=== PATIENT | female | born 1990 | race African-American/Black ===

== ENCOUNTER 2022-04-24 00:38 | Emergency (ER) | payer BC ==
--- OUTSIDE RECORDS SUMMARY | 2022-04-24 00:43 | XMS REPORT | Continuity of Care Document ---
:1990 Author Organization [facility] t Address [address] [place] [address] Dr. [address] [place] [address] Care Team Providers Name Role Phone DELIA ARREDONDO Primary Care Physician Unavailable Carlos Peace RN Attending Clinician Unavailable Only, Ang Db Test Attending Clinician Unavailable Reynaldo Chang Attending Clinician REYNALDO STALLWORTH Attending Clinician Unavailable DELIA ARREDONDO Attending Clinician Unavailable CHERRIE Attending Clinician Unavailable Javier PALMER Attending Clinician Unavailable Javier Martin Attending Clinician Chloe Navas MD Attending Clinician Doctor Unassigned, [place] Attending Clinician Unavailable DR FOREIGN SOLIS Attending Clinician Unavailable Carmen Attending Clinician Unavailable CHERRIE Admitting Clinician Unavailable DR FOREIGN SOLIS Admitting Clinician Unavailable Carmen Admitting Clinician Unavailable Payers Payer Name Policy Type Policy Number Effective Date Expiration Date S robert [place] WOMEN'S [id number] HEALTH PROGRAM (MEDICAID) Problems Condition Condition Condition Status Onset Resolution Last Treating Co mments Source Name Details Category Date Date Treatment Clinician Date Labial Labial Disease Active Univers abscess abscess 8- ity of 00:00: [place] 00 Medical Branch Morbid Morbid Disease Active Univers obesity obesity 8-26 ity of with body with body 00:[place] mass index mass index 00 Me dical of 50 or of 50 or Branch higher higher Obese Obese Disease Active 2020- Univers 9-29 ity of 00:00: [place] [facility] Trichomona Trichomona Disease Active 2020- U nivers l l 6-30 ity of vulvovagin vulvovagin [place] it[place] it[place] 00 Medical Branch Other Other Disease Active 2019- Univers general general 6-29 ity of counseling counseling [place] and advice and advice 00 Ri dical for for Branch contracept contracept wesley wesley management management Dysmenorrh Dysmenorrh Disease Active 2019- U nivers ea ea 9-10 ity of 00:00: [place] [facility] Menorrhagi Menorrhagi Disease Active U nivers a with a with 9-10 ity of regular regular 00:00: [place] cycle cycle 00 Medical Branch Elevated Elevated Disease Active Unive rs BP without BP without 9-10 it y of diagnosis diagnosis 00:00: [place] s of of Medical hypertensi hypertensi Br anch on on Irregular Irregular Disease Active Uni vers menstrual menstrual 9-10 ity of cycle cycle 00:00: [place] [facility] Branch Allergies, Adverse Reactions, Alerts Allergy Allergy Status Severity Reaction(s) Onset Inactive Treating Comm ents Source Name Type Date Date Clinician NO KNOWN Drug Active Univers ALLERGIE Class ity of S [facility] No Known DA Active [facility] s Social History Social Habit Start Date Stop Date Quantity Comments Source History of Current smoker University of tobacco use [facility] Exposure to 2022-02-08 2022-02-18 Not sure University SARS-CoV-2 00:00:00 15:15:00 [facility] (event) [place] Alcohol intake 2021-11-18 2021-11-18 Current drinker Unive rsity of 00:00:00 00:00:00 of alcohol [facility] (finding) [place] Tobacco use and 2021-03-28 2021-03-28 Smokeless tobacco Un iversity of exposure 00:00:00 00:00:00 non-user [place] [facility] History SDOH 2020-05-01 2020-05-01 99 University o f Alcohol Frequency 00:00:00 00:00:00 [facility] edical Branch History SDOH 2020-05-01 2020-05-01 99 University o f Alcohol Std 00:00:00 00:00:00 [place] Medical Drinks Branch History SDOH 2020-05-01 2020-05-01 99 [place] o f Alcohol Binge 00:00:00 00:00:00 [place] Medic al Branch Alcohol Comment 2020-05-01 2020-05-01 social Universit y of 00:00:00 00:00:00 [facility] Sex Ass[birth year] At [birth year] Universit y of 00:00:00 00:00:00 [facility] Smoking Status Start Date Stop Date Source Ex-smoker 2021-03-28 00:00:00 2021-03-28 00:00:00 [facility] ty [facility] Medications Ordered Filled Start Stop Current Ordering Indication Dosage Frequency Signature Comments Components Source Medication Medication Date Date Medication? Clinician (SIG) Name Name NaCl 0.9% 2021- No 1000mL at 999 Uni vers (NS) IV 11-19 mL/hr, ity of infusion 08:45: 09:15 [place]venou [place] 1,000 mL 00 :00 s, ONCE, 1 Medic al dose, On Branch [facility] 11/19/21 at 0345, KAREEM metFORMIN 2021- No 500mg 500 mg, Uni vers (GLUCOPHAGE 11-19 Oral, ity of ) tablet 08:45: 09:11 ONCE, 1 [place] 500 mg 00 :00 dose, On Medical e Branch 11/19/21 at 0345, Routine NaCl 0.9% 2021- No 1000mL at 999 Uni vers (NS) bolus 11-19 mL/hr, ity of infusion 06:30: 06:16 1,000 mL, [place] as 1,000 mL 00 :00 IV Medical Infusion, Branch ONCE, 1 dose, On [facility] 11/19/21 at 0130, STAT insulin 2021- No 10U 10 Units, Univ ers regular 11-19 Slow IV ity of human 06:30: 05:31 Push [place] (HUMULIN R) 00 :00 ONCE, 1 Medic al injection dose, On Branch 10 Units [facility] 11/19/21 at 0130, STAT ketorolac 2021- No 15mg 15 mg, Unive rs (TORADOL) 11-19 Slow IV ity of injection 06:00: 05:18 Push, [place] 15 mg 00 :00 ONCE, 1 Medical dose, On Branch 11/19/21 at 0100, KAREEM
Fa [facility] healthy member approving Restricted medication : Javier PALMER NaCl 0.9% 2021- No 1000mL at 999 Uni vers (NS) IV 11-19-19 mL/hr, ity of infusion 01:45: 06:15 [place]ou [place] 1,000 mL 00 :00 s, ONCE, 1 Medic al dose, On Branch 11/18/21 at 2100, KAREEM metFORMIN 2021-0 Yes [id number] 500mg Take 1 Univers 500 mg 4-19 tablet by ity of tablet 00:00: mouth 2 [place] 00 (two) Medical times Branch daily. glipiZIDE Yes [id number] 10mg Take 1 U nivers 10 mg 4-19 tablet by ity of tablet 00:00: mouth [place] 00 daily. Medical Branch metFORMIN 0 Yes [id number] 500mg Take 1 Univers 500 mg 4-19 tablet by ity of tablet 00:00: mouth 2 [place] 00 (two) Medical times Branch daily. glipiZIDE 2021-0 Yes [id number] 10mg Take 1 U nivers 10 mg 4-19 tablet by ity of tablet 00:00: mouth [place] 00 daily. Medical Branch metFORMIN 0 Yes [id number] 500mg Take 1 Univers 500 mg 4-19 tablet by ity of tablet 00:00: mouth 2 [place] (two) Medical times Branch daily. glipiZIDE 2021-0 Yes [id number] 10mg Take 1 U nivers 10 mg 4-19 tablet by ity of tablet 00:00: mouth [place] 00 daily. Medical Branch albuterol 0 Yes [id number] 2{puff} Inhale 2 Univers 90 4-18 Puffs ity of mcg/actuati 00:00: every 6 [place] as on inhaler 00 (six) Medical hours as Branch needed for Wheezing or Shortness of Breath. benzonatate 0 Yes [id number] 200mg Take 2 Univers 100 mg 4-18 capsules ity of capsule 00:00: by mouth [place] 00 every 8 Medical (eight) Branch hours as needed for Cough. albuterol 0 Yes [id number] 2{puff} Inhale 2 Univers 90 4-18 Puffs ity of mcg/actuati 00:00: every 6 [place] as on inhaler 00 (six) Medical hours as Branch needed for Wheezing or Shortness of Breath. benzonatate 0 Yes [id number] 200mg Take 2 Univers 100 mg 4-18 capsules ity of capsule 00:00: by mouth [place] every 8 Medical (eight) Branch hours as needed for Cough. albuterol 0 Yes [id number] 2{puff} Inhale 2 Univers 90 4-18 Puffs ity of mcg/actuati 00:00: every 6 [place] as on inhaler 00 (six) Medical hours as Branch needed for Wheezing or Shortness of Breath. benzonatate 0 Yes [id number] 200mg Take 2 Univers 100 mg 4-18 capsules ity of capsule 00:00: by mouth [place] every 8 Medical (eight) Branch hours as needed for Cough. albuterol 0 Yes [id number] 2{puff} Inhale 2 Univers 90 4-18 Puffs ity of mcg/actuati 00:00: every 6 [place] as on inhaler 00 (six) Medical hours as Branch needed for Wheezing or Shortness of Breath. benzonatate 0 Yes [id number] 200mg Take 2 Univers 100 mg 4-18 capsules ity of capsule 00:00: by mouth [place] 00 every 8 Medical (eight) Branch hours as needed for Cough. albuterol 0 Yes [id number] 2{puff} Inhale 2 Univers 90 4-18 Puffs ity of mcg/actuati 00:00: every 6 [place] as on inhaler 00 (six) Medical hours as Branch needed for Wheezing or Shortness of Breath. benzonatate 2021-0 Yes [id number] 200mg Take 2 Univers 100 mg 4-18 capsules ity of capsule 00:00: by mouth [place] 00 every 8 Medical (eight) Branch hours as needed for Cough. amoxicillin 0 2021- No [id number] 1{tbl} Take 1 Univers -clavulanat 4-18 04-26 tablet by it y of e 00:00: 04:59 mouth 2 [place] (AUGMENTIN) 00 :00 (two) Medical 875-125 mg times Branch per tablet daily for 7 days. amoxicillin 2021-0 2021- No [id number] 1{tbl} Take 1 Univers -clavulanat 4-18 04-26 tablet by it y of e 00:00: 04:59 mouth 2 [place] (AUGMENTIN) 00 :00 (two) Medical 875-125 mg times Branch per tablet daily for 7 days. amoxicillin 2021-0 2021- No [id number] 1{tbl} Take 1 Univers -clavulanat 4-18 04-26 tablet by it y of e 00:00: 04:59 mouth 2 [place] (AUGMENTIN) 00 :00 (two) Medical 875-125 mg times Branch per tablet daily for 7 days. Iodoform Yes [id number] Pack wound Univers (CURITY 8-27 daily and ity of IODOFORM 00:00: [place] PACK[place] 00 with PCP Medical STRIP) 1 X in 1 week Bran 5 "-yard [facility] metFORMIN Yes [id number] 500mg Take 1 U nivers 500 mg 8-27 tablet by ity of tablet 00:00: mouth 2 (two) Medical times Branch daily with meals. glipiZIDE Yes [id number] 10mg Take 1 Un ericka 10 mg 8-27 tablet by ity of tablet 00:00: mouth [place] 00 daily. Medical Branch Iodoform 0 Yes [id number] Pack wound Univers (CURITY 8-27 daily and ity of IODOFORM 00:00: [place] P[place] 00 with PCP Medical STRIP) 1 X in 1 week Bran 5 "-yard [facility] metFORMIN 0 Yes [id number] 500mg Take 1 U nivers 500 mg 8-27 tablet by ity of tablet 00:00: mouth 2 (two) Medical times Branch daily with meals. glipiZIDE 0 Yes [id number] 10mg Take 1 Un ericka 10 mg 8-27 tablet by ity of tablet 00:00: mouth [place] 00 daily. Medical Branch Iodoform 0 Yes [id number] Pack wound Univers (CURITY 8-27 daily and ity of IODOFORM 00:00: [place] P[place] 00 with PCP Medical STRIP) 1 X in 1 week [facility] 5 "-yard [facility] metFORMIN 0 Yes [id number] 500mg Take 1 U nivers 500 mg 8-27 tablet by ity of tablet 00:00: mouth 2 (two) Medical times Branch daily with meals. glipiZIDE 0 Yes [id number] 10mg Take 1 Un er[place] 10 mg 8-27 tablet by ity of tablet 00:00: mouth [place] 00 daily. Medical Branch Iodoform 0 Yes [id number] Pack wound Univers (CURITY 8-27 daily and ity of IODOFORM 00:00: [place] PACK[place] 00 with PCP Medical STRIP) 1 X in 1 week Bran ch 5 "-yard [facility] metFORMIN Yes [id number] 500mg Take 1 U nivers 500 mg 8-27 tablet by ity of tablet 00:00: mouth 2 [place] (two) Medical times Branch daily with meals. glipiZIDE 0 Yes [id number] 10mg Take 1 Un [place] 10 mg 8-27 tablet by ity of tablet 00:00: mouth [place] 00 daily. Medical Branch Iodoform 0 Yes [id number] Pack wound Univers (CURITY 8-27 daily and ity of IODOFORM 00:00: [place] PACK[place] 00 with PCP Medical STRIP) 1 X in 1 week Bran ch 5 "-yard [facility] metFORMIN 0 Yes [id number] 500mg Take 1 U nivers 500 mg 8-27 tablet by ity of tablet 00:00: mouth 2 00 (two) Medical times Branch daily with meals. glipiZIDE 0 Yes [id number] 10mg Take 1 Un er[place] 10 mg 8-27 tablet by ity of tablet 00:00: mouth [place] 00 daily. Medical Branch norethindro 2019-0 Yes [id number] 1{tbl} Take 1 Univers ne 0.35 mg 9-29 tablet by ity of tablet 00:00: mouth [place] 00 daily. Medical Branch norethindro 2019-0 Yes [id number] 1{tbl} Take 1 Univers ne 0.35 mg 9-29 tablet by ity of tablet 00:00: mouth [place] 00 daily. Medical Branch norethindro 2019-0 Yes [id number] 1{tbl} Take 1 Univers ne 0.35 mg 9-29 tablet by ity of tablet 00:00: mouth [place] 00 daily. Medical Branch norethindro Yes [id number] 1{tbl} Take 1 Univers ne 0.35 mg 9-29 tablet by ity of tablet 00:00: mouth [place] 00 daily. Medical Branch norethindro Yes [id number] 1{tbl} Take 1 Univers ne 0.35 mg 9-29 tablet by ity of tablet 00:00: mouth [place] 00 daily. Medical Branch ferrous Yes [id number] 325mg Take 1 Un [place] sulfate 325 9-18 tablet by ity of mg (65 mg 00:00: mouth [place] iron) 00 daily. Medical tablet Branch ferrous Yes [id number] 325mg Take 1 Un [place] sulfate 325 9-18 tablet by ity of mg (65 mg 00:00: mouth [place] iron) 00 daily. Medical tablet Branch ferrous Yes [id number] 325mg Take 1 Un [place] sulfate 325 9-18 tablet by ity of mg (65 mg 00:00: mouth [place] iron) 00 daily. Medical tablet Branch ferrous Yes [id number] 325mg Take 1 Un [place] sulfate 325 9-18 tablet by ity of mg (65 mg 00:00: mouth [place] iron) 00 daily. Medical tablet Branch ferrous Yes [id number] 325mg Take 1 Un [place] sulfate 325 9-18 tablet by ity of mg (65 mg 00:00: mouth [place] iron) 00 daily. [facility] Branch Immunizations Ordered Filled Immunization Date Status Comments [facility] e Immunization Name Name Influenza Virus 2020-05-01 Completed Universit y of Vaccine [place] .5 mL 00:00:00 [place] Medical IM 6+ MO Branch Influenza Virus 2020-05-01 Completed Universit y of Vaccine [place] .5 mL 00:00:00 [place] Medical IM 6+ MO Branch Influenza Virus 2020-05-01 Completed Universit y of Vaccine [place] .5 mL 00:00:00 [place] Medical IM 6+ MO Branch Influenza Virus 2020-05-01 Completed Universit y of Vaccine [place] .5 mL 00:00:00 [facility] IM 6+ MO Branch Influenza Virus 2020-05-01 Completed Universit y of Vaccine [place] .5 mL 00:00:00 [facility] 6+ MO Branch Vital Signs Vital Name Observation Time Observation Value Comments Source Systolic blood 2021-11-19 09:00:00 132 mm[Hg] Univer sity of pressure [place] [facility] Diastolic blood 2021-11-19 09:00:00 100 mm[Hg] Unive rsity of pressure [place] [facility] Heart rate 2021-11-19 09:00:00 84 /min Universi ty of [place] [facility] [place] Respiratory rate 2021-11-19 09:00:00 13 /min Univ ersity of [facility] Oxygen saturation in 2021-11-19 09:00:00 96 /min University of Arterial blood by [facility] Pulse oximetry Branch Body temperature 2021-11-19 01:36:00 37.17 Karoline Univ ersity of [place] [facility] [place] Body height 2021-11-19 01:36:00 154.9 cm Universi ty of [place] [facility] [place] Body weight 2021-11-19 01:36:00 131.543 kg Universi ty of [place] [facility] [place] BMI 2021-11-19 01:36:00 54.80 kg/m2 Universi ty of [place] [facility] [place] Systolic blood 2021-11-18 23:56:00 135 mm[Hg] Univer sity of pressure [place] [facility] Diastolic blood 2021-11-18 23:56:00 93 mm[Hg] Unive rsity of pressure [place] [facility] [place] Heart rate 2021-11-18 23:56:00 105 /min Universi ty of [place] [facility] [place] Body temperature 2021-11-18 23:56:00 37.17 Karoline Univ ersity of [place] [facility] Respiratory rate 2021-11-18 23:56:00 17 /min Univ ersity of [place] [facility] [place] Body height 2021-11-18 23:56:00 154.9 cm Universi ty of [place] [facility] Body weight 2021-11-18 23:56:00 131.543 kg Universi ty of [place] [facility] BMI 2021-11-18 23:56:00 54.80 kg/m2 Universi ty of [place] [facility] Oxygen saturation in 2021-11-18 23:56:00 97 /min University of Arterial blood by [facility] Pulse oximetry Branch Height 2021-03-14 11:50:00 154.94 CM Weight 2021-03-14 11:50:00 121.1 KG Procedures Procedure Date / Time Performed Performing Clinician Sourc e POCT GLUCOSE 2021-11-19 07:30:00 Althea, K [facility] (AUTOMATED) [facility] Branch POCT GLUCOSE 2021-11-19 06:42:00 Javier Palmer [facility] (AUTOMATED) Medical Branch POCT GLUCOSE 2021-11-19 06:07:00 Javier Palmer [facility] (AUTOMATED) [facility] Branch CBC WITH DIFF 2021-11-19 04:35:00 Tae Hauser [facility] Branch LIPASE 2021-11-19 04:34:00 Javier Palmer [facility] MAGNESIUM 2021-11-19 04:34:00 Javier Palmer [facility] TROPONIN I 2021-11-19 04:34:00 Javier Palmer [facility] HEPATIC FUNCTION PANEL 2021-11-19 04:34:00 Javier Palmer [place] [facility] ([id number]) Medical Branch (ALB,T.PRO,BILI T,BU/BC,ALT,AST,ALK PHOS) BASIC METABOLIC PANEL 2021-11-19 04:34:00 Tae Hauser [facility] (NA, K, CL, CO2, Medical Branch GLUCOSE, BUN, CREATININE, CA) URINALYSIS 2021-11-19 02:17:00 Tae Hauser [facility] POCT TEST 2021-11-19 02:06:00 Tae Hauser [facility] POCT GLUCOSE(AGE 2021-11-19 01:49:00 Tae Hauser [facility] >30DAYS) Medical Branch POCT GLUCOSE 2021-11-19 01:34:00 Doctor Unassigned, No [facility] (AUTOMATED) Name [facility] Branch CONSENT/REFUSAL FOR 2021-11-19 01:12:45 Doctor Unassigned, No Un [facility] DIAGNOSIS AND Name [facility] Branch TREATMENT INT REGN-COV2 MNCL AB 2021-03-16 00:00:00 Salvador Castaneda VN PRC NT6 Center Encounters Start End Encounter Admission Attending Care Care Encounter Source Date/Time Date/Time Type Type Clinicians Facility Department ID 2022-02-19 2022-02-19 Letter MACKENZIE Peace [id number] Univers 00:00:00 00:00:00 (Out) Carlos MOBLEY [id number] it y of [facility] [id number] [place] [id number] [address] 2022-02-18 2022-02-18 Laboratory Only, Ang Db Test [facility] 1.2.8 [id number] [id number] Univers 15:15:00 15:30:00 Only Reynaldo Stallworth [facility] [id number] ity [facility] [id number] [place] as RICH?BLEA [id number] [address] MEDICAL OFFICE BUILDING 2022-02-18 2022-02-18 Outpatient R IRLANDAJUANI [facility] [id number] Univers 15:15:00 15:23:18 REYNALDO [facility] 2022-02-18 2022-02-18 Outpatient R [facility] [id number] Univers 15:15:00 15:15:00 [id number] [facility] 2021-12-03 2021-12-03 Outpatient R ARNULFO, [facility] [id number] Univers 10:00:00 10:00:00 DELIA [id number] [facility] 2021-12-03 2021-12-03 Outpatient R ARNULFO, [facility] [id number] Univers 10:00:00 10:00:00 DELIA [facility] 2021-11-26 2021-11-26 Outpatient R ARNULFO [facility] [id number] Univers 09:00:00 09:00:00 DELIA [id number] [facility] 2021-11-26 2021-11-26 Outpatient R ARNULFO [facility] [id number] Univers 09:00:00 09:00:00 DELIA [facility] 2021-11-20 2021-11-20 Outpatient DICLEMENTE_ GIULIANO [facility] [id number] [place] 05:58:00 05:58:00 MARGARITA james [facility] 2021-11-18 2021-11-19 Emergency X Javier [facility] ERT [id number] Univers 20:38:00 04:16:00 ity of [facility] 2021-11-18 2021-11-19 Emergency Javier Palmer [facility] [id number] Univers 20:38:00 04:16:00 [place] BEAULIEU [id number] i ty of [place] 4.2.7.2.686 [place] [id number] [facility] 084 Branch 2021-11-18 2021-11-18 Urgent Song, [facility] [id number] Univers 18:40:00 19:28:33 Care [facility] [id number] it y of [place] [id number] [place] as RICH?BLEA [id number] Ri dical [address] MEDICAL OFFICE BUILDING 2021-11-18 2021-11-18 Orders Doctor MACKENZIE [id number] Univers 00:00:00 00:00:00 Only Unassigned, ITZ [id number] ity of [place] [facility] [id number] [place] as [id number] [facility] 009 Branch 2021-03-16 2021-03-19 [facility] [id number] [facility] 12:50:00 11:50:00 FOREIGN Medica [facility] 2020-06-20 2020-06-20 Outpatient Mana_G [facility] [address] [place] 02:23:00 02:23:00 [id number] [facility] Results Test Description Test Time Test Comments Results Result Comments Source POCT GLUCOSE (AUTOMATED) 2021-11-19 07:32:20 Test Item Value Reference Range Interpretation Comme nts POCT GLU (test code = 0402656115) 378 mg/dL 70-110 H Lab Interpretation (test code = 91625-8) Abnormal [facility] GLUCOSE (AUTOMATED)2021-11-19 06:44:58 Test Item Value Reference Range Interpretation Comments POCT GLU (test code = 5892004229) 332 mg/dL 70-110 H Lab Interpretation (test code = Abnormal 61415-8) [facility] GLUCOSE (AUTOMATED)2021-11-19 06:15:39 Test Item Value Reference Range Interpretation Comments POCT GLU (test code = 6094071123) 375 mg/dL 70-110 H Lab Interpretation (test code = Abnormal 61997-3) [facility] with [id number] 05:22:18 Test Item Value Reference Range Interpretation Comments WBC (test code = See_Comment H Previous 6690-2) preliminary verified result was 11.44 10*3/?L o n 11/19/2021 at 00 21 CDT [Automated message] The sy stem which generated this result transmitted reference range : 4.30 - 11.10 10*3/?L. The reference range was not used to interpret this result as normal/abnormal . RBC (test code = See_Comment H Previous 789-8) preliminary verified result was 5.38 10*6/?L on 11/19/2021 at 00 21 CDT [Automated message] The sy stem which generated this result transmitted reference range : 3.93 - 5.25 10*6/?L. The reference range was not used to interpret this result as normal/abnormal . HGB (test code = 14.5 g/dL 11.6-15.0 718-7) HCT (test code = 44.1 % 35.7-45.2 Previous 4544-3) preliminary verified result was 44.2 % on 2021 at 0021 CDT MCV (test code = 81.5 fL 80.6-95.5 Previous 787-2) preliminary verified result was 82.2 fL on 11/19/2021 at 00 21 CDT MCH (test code = 26.8 pg 25.9-32.8 Previous 785-6) preliminary verified result was 27.0 pg on 11/19/2021 at 00 21 CDT MCHC (test code = 32.9 g/dL 31.6-35.1 Previous 786-4) preliminary verified result was 32.8 g/dL on 11/19/2021 at 00 21 CDT RDW-SD (test code = 40.1 fL 39.0-49.9 Previous 27089-9) preliminary verified result was 40.0 fL on 11/19/2021 at 00 21 CDT RDW-CV (test code = 13.5 % 12.0-15.5 Previous 788-0) preliminary verified result was 13.6 % on 2021 at 0021 CDT PLT (test code = See_Comment Previous 777-3) preliminary verified result was 260 10*3/?L on 11/19/2021 at 00 21 CDT [Automated message] The sy stem which generated this result transmitted reference range : 166 - 358 10*3/ ?L. The reference r ciera was not used to interpret this result as normal/abnormal . MPV (test code = 11.8 fL 9.5-12.9 12326-0) NRBC/100 WBC (test See_Comment [Automat ed code = 9871265687) message] The system which generated this result transmitted reference range : 0.0 - 10.0 /100 WBCs. The refer ence range was not u sed to interpret th is result as normal/abnormal . NRBC x10^3 (test code <0.01 See_Comment [Auto mated = 0250032602) message] The s ystem which generated this result transmitted reference range : 10*3/?L. The reference range was not used to interpret this result as normal/abnormal . SEG % (test code = 52 % 33-76 10445-1) LYMPH % (test code = 44 % 14-54 04901-9) MONO % (test code = 4 % 0-4 34195-1) ANC (test code = 5.95 10*3/uL 1.88-7.09 753-4) Lab Interpretation Abnormal (test code = 94442-1) [facility] [id number] 05:17:57 Test Item Value Reference Interpretation Comments Range TROPONIN I (test 0.003 ng/mL See_Comment [Automated code = 8443369066) message] The system which generated this result transmitted reference range : <=0.034. The reference range was not used to interpret this result as normal/abnormal . DELIA (test code = Reference (Normal) DELIA) Range (defined by the 99th percentile reference limit): <= 0.034 ng/mL Note: Cardiac troponin begins to rise 3-4 hours after the onset of ischemia. Repeat in 4-6 hours if the sample was drawn within 3-4 hours of the onset of the symptom and found normal. Diagnosis of myocardial injury is made with acute changes in cTn concentrations with at least one serial sample above the 99th percentile upper reference limit (URL), taken together with the patient's clinical presentation. Biotin has been reported to cause a negative bias, interpret results relative to patient's use of biotin. Lab Interpretation Normal (test code = 79755-7) [facility] Metabolic Panel (NA, K, CL, CO2, Glucose, BUN, Creatinine, CA)2021-11-19 05:13:01 Test Item Value Reference Range Interpretation Comments NA (test code = 135 mmol/L 135-145 6661904739) K (test code = 4.6 mmol/L 3.5-5.0 2895915242) CL (test code = 94 mmol/L 98-108 L 3384249263) CO2 TOTAL (test code = 28 mmol/L 23-31 2572682215) AGAP (test code = 2-16 5155948768) BUN (test code = 19 mg/dL 7-23 6260398621) GLUCOSE (test code = 561 mg/dL 70-110 HH 9119337562) CREATININE (test code = 1.03 mg/dL 0.50-1.04 4411160006) CALCIUM (test code = 9.5 mg/dL 8.6-10.6 6831365644) eGFR (test code = mL/min/1.73m2 7225854202) DELIA (test code = DELIA) Association of Glomerular Filtration Rate (GFR) and Staging of Kidney Disease* + --+ --+ ------+| GFR (mL/min/1.73 m2) ?| With Kidney Damage ?| ?Without Kidney Damage+ --------+ --------+ +| ?>90 ?| ?Stage one ?| ? Normal ?+ ---+ ---+ -------+| ?60-89 ?| ?Stage two ?| ? Decreased GFR ? + --+ --+ ------+| ?30-59 ?| ?Stage three ?| ? Stage three ? + --+ --+ ------+| ?15-29 ?| ?Stage four ? | ? Stage four ?+ ---+ ---+ -------+| ?<15 (or dialysis) ? ?| ?Stage five ? | ? Stage five ?+ ---+ ---+ -------+ *Each stage assumes the associated GFR level has been in effect for at least three months. ?Stages 1 to 5, with or without kidney disease, indicate chronic kidney disease. Notes: Determination of stages one and two (with eGFR >59mL/min/1.73 m2) requires estimation of kidney damage for at least three months as defined by structural or functional abnormalities of the kidney, manifested by either:Pathological abnormalities or Markers of kidney damage (including abnormalities in the composition of the blood or urine or abnormalities in imaging tests). Lab Interpretation Abnormal (test code = 55612-6) [facility]55 Test Item Value Reference Range Interpretation Comments MAGNESIUM (test code = 7103319695) 1.8 mg/dL 1.7-2.4 Lab Interpretation (test code = Normal 26774-5) [facility]55[facility] (ALB,T.PRO,BILI T,BU/BC,ALT,AST,ALK PHOS)2021-11-19 05:06:55 Test Item Value Reference Range Interpretation Comments TOTAL BILI (test code = 1661751842) 0.5 mg/dL 0.1-1.1 BILI UNCON (test code = 5331782724) 0.2 mg/dL 0.1-1.1 BILI CONJ (test code = 1624777444) 0.0 mg/dL 0.0-0.3 T PROTEIN (test code = 5316562430) 7.5 g/dL 6.3-8.2 ALBUMIN (test code = 7653044859) 4.6 g/dL 3.5-5.0 ALK PHOS (test code = 6604078935) 110 U/L 34-122 ALTv (test code = 1742-6) 27 U/L 5-35 AST(SGOT) (test code = 4682309677) 32 U/L 13-40 Lab Interpretation (test code = Normal 58362-4) [facility] 05:06:35 Test Item Value Reference Range Interpretation Comments LIPASE (test code = 8389330461) 87 U/L 0-220 Lab Interpretation (test code = Normal 61913-8) [facility] [id number] 02:06:00 Test Item Value Reference Range Interpretation Comments POCT PREG (test code = 1605) negative On board controls acceptable with positive C Line (test code = 3574) POCT PREG LOT # (test code = 3575) [id number] POCT PREG TEST DATE (test 05/02/2023 code = 3576) Lab Interpretation (test code = Normal 07926-9) [facility] Glucose (Age > 30 Days)2021-11-19 01:49:00 Test Item Value Reference Range Interpretation Comments POCT Glu (age>30days) (test code = 441 mg/dL 70-110 A 3342) Lab Interpretation (test code = Abnormal 50423-1) [facility] GLUCOSE (AUTOMATED)2021-11-19 01:37:02 Test Item Value Reference Range Interpretation Comments POCT GLU (test code = 2941292208) 441 mg/dL 70-110 H Lab Interpretation (test code = Abnormal 11907-3) [facility]2021-03-14 13:53:00 Test Item Value Reference Range Interpretation Comments PREG UR (test code = PGU) Negative NEGATIVE URINALYSIS W/O MICROSCOPICOW2021-03-14 13:48:00 Test Item Value Reference Range Interpretation Comments COLOR (test code = Asmita YELLOW A COLU) CLARITY (test code = Cloudy CLEAR CLA) GLUCOSE UR (test Negative NEGATIVE code = UA GLUCOSE) BILI UR (test code = 1+ NEGATIVE A BILE) KETONES UR (test Trace NEGATIVE code = LYUBOV) SP GRAVITY (test 1.025 1.005-1.030 code = SPGR) PH UR (test code = 5.5 4.5-8.0 PH) PROTEIN UR (test 2+ NEGATIVE A code = PU) NITRITE UR (test Negative NEGATIVE code = NITRITE) UROBIL UR (test code 0.2 E.U./dL = GUROQ) UROBIL UR (test code UROBILINOGEN = GUROQC) REFERENCE RANGE 0.2 - 1.0 EU/dL BLOOD UR (test code Negative NEGATIVE = UA BLOOD) LEUK ES UR (test Negative NEGATIVE code = LEUK) SARS-CoV (RAPID ANTIGEN) WH2021-03-14 13:13:00 Test Item Value Reference Range Interpretation Comments SARS-CoV (ANTIGEN) POSITIVE NEGATIVE AA (test code = COVAG) COVID AG (test This test has been code = COVAGC) marketed under the FDA Emergency Use Authorization (EUA) to meet challenges of the COVID-19 pandemic. The validation standards normally enforced by the FDA and the [employer] the [employer] [place] [employer] (CAP) are more stringent than those required for this test. Therefore, the result should be interpreted with caution and close attention to other clinical and epidemiological data GENERAL CHEMISTRY 13 *OW* [id number] 13:12:00 Test Item Value Reference Range Interpretation Comments GLUCOSE (test code = GGUL) 160 mg/dL 73-118 H BUN (test code = GBUN) 8 mg/dL 7-22 CREATININE (test code = GCRE) 0.9 mg/dL 0.6-1.2 URIC ACID (test code = GUA) 8.0 mg/dL 2.2-6.6 H CALCIUM (test code = GCL+) 9.1 mg/dL 8.0-10.3 ALBUMIN (test code = GALB) 4.4 g/dL 3.5-5.5 PROTEIN (test code = GTP) 8.6 g/dL 6.4-8.1 H ALT (test code = GALT) 36 U/L 10-47 AST (test code = OK) 88 U/L 11-38 H ALK PHOS (test code = GALP) 68 U/L 42-141 BILI TOTAL (test code = GTBIL) 0.8 mg/dL 0.2-1.6 GGT (test code = GGGT) 93 U/L 5-65 H AMYLASE (test code = GAMY) 59 U/L 14-97 CBC (INCLUDES AUTOMATED DIFFERENTIAL) *2021-03-14 13:04:00 Test Item Value Reference Range Interpretation Comments WBC (test code = WBC) 8.5 10\\S\\3/uL 4.5-11.0 RBC (test code = RBC) 5.84 10\\S\\6/uL 4.30-5.70 H HGB (test code = HBG) 15.2 g/dL 12.0-15.5 HCT (test code = HCT) 48.4 % 35.0-44.0 H MCV (test code = MCV) 82.8 fL 81.0-99.0 MCH (test code = MCH) 26.0 pg 27.0-31.0 L MCHC (test code = MCHC) 31.4 g/dL 32.0-36.0 L RDW (test code = RDW) 15.1 % 11.5-14.5 H PLT (test code = PLT) 196 10\\S\\3/uL 130-400 MPV (test code = OMPV) 9.5 fL 6.2-10.2 NEUTROP # (test code = NE#) 4.6 10\\S\\3/uL 1.6-8.0 LYMPH # (test code = LY#) 3.1 10\\S\\3/uL 1.1-3.5 MID # (test code = GMID#) 0.8 10\\S\\3/uL 0.0-1.1 GRAN % (test code = GRA%) 54.7 % 35.0-73.0 LYMPH % (test code = GLY%) 36.2 % 20.0-55.0 MID % (test code = GMID%) 9.1 % 0.0-10.0 XR CHEST 1 VIEW PORTABLE *OW*2021-03-14 12:41:33 [facility] : 1990 Sex: FEXAMINATION: XR CHEST 1 VIEW.HISTORY: Dyspnea.COMPARISON: None.FINDINGS:Examination is limited due to portable technique, patient body habitus and low lung volumes.Cardiac silhouette/Mediastinal contour: Within normal limits.Lungs: No focal consolidation. No large pleural effusion.Osseous Structures: No acute osseous abnormalities.IMPRESSION: Low lung volumes, no focal consolidation.Electronically signed by: Cristal Ng MD 03/14/2021 12:41 PM CDT
[2022-04-24 01:21] LABS: Urine Blood Negative (Negative); Urine Glucose 2+ (Negative); Urine Protein Negative (Negative)
[2022-04-24] MEDS ORDERED: NA CHLORIDE 0.9% 1,000 ML ONE (01:23)
[2022-04-24 02:23] LABS: Absolute Lymphocytes (CBC) 3.2 K/uL (0.7-4.9); Hematocrit 40.3 % (36.0-45.0); Lymphocytes % 42.2 % (15.3-44.8); MCV 80.7 fL (80-100); MPV 9.5 fL (7.6-11.3)
[2022-04-24 02:48] LABS: Potassium 3.9 mmol/L (3.5-5.1)
--- NOTE | 2022-04-24 02:51 | EDPHYS ---
Physician Documentation [facility] Name: Marianne Arredondo Age: 32 yrs Sex: Female : 1990 Arrival Date: 04/24/2022 Time: 00:43 Bed 6 Private MD: ED Physician Polo Rodríguez HPI: 04/24 03:11 This 32 yrs old Black Female presents to ER via Ambulatory with complaints of High ms3 Blood Sugar, - 408. 03:11 32-year-old female with past medical history of diabetes presents for hyperglycemia. ms3 Patient states her blood glucose levels have ranged from 565-570. Patient states this is been ongoing for 1 week. Patient endorses Nelly dysuria, polyuria, nausea. Patient denies alleviating or inciting factors. Patient notes tonight she had a hamburger with [place] fries and watermelon.. COMMISSIONS SPECIALIST: 01:33 LMP 04/03/2022 tw5 Historical: - Allergies: 01:33 No Known Allergies; tw5 - Home Meds: 01:33 glipizide 10 mg Oral tab 1 tab once daily for type 2 diabetes mellitus [Active]; tw metformin 1,000 mg Oral tab 1 tab 2 times per day for type 2 diabetes mellitus [Active]; - PMHx: 01:33 Diabetes mellitus; tw5 - PSHx: 01:33 Tonsillectomy; tw5 - Immunization history:: Adult Immunizations up to date. - Social history:: Smoking status: Patient denies any tobacco usage or history of. ROS: 03:11 Constitutional: Negative for fever, and chills. Neck: Negative for injury, pain, and ms3 swelling, Cardiovascular: Negative for chest pain, and palpitations. Respiratory: Negative for shortness of breath, cough, wheezing, and pleuritic chest pain. 03:11 MS/Extremity: Negative for injury and deformity, Skin: Negative for injury, rash, and discoloration, Neuro: Negative for headache, weakness, numbness, tingling. 03:11 Abdomen/GI: Positive for nausea. 03:11 Endocrine: Positive for polydipsia, polyuria. 03:11 All other systems are negative. Exam: 03:11 Constitutional: This is a well developed, well nourished patient who is awake, alert, ms3 and in no acute distress. Head/Face: Normocephalic, atraumatic. Neck: Trachea midline, no cervical lymphadenopathy. Supple, full range of motion without nuchal rigidity, or vertebral point tenderness. No Meningismus. Chest/axilla: Normal chest wall appearance and motion. Nontender with no deformity. Cardiovascular: Regular rate and rhythm with a normal S1 and S2. No gallops, murmurs, or rubs. Normal PMI, no JVD. No pulse deficits. Respiratory: Lungs have equal breath sounds bilaterally, clear to auscultation and percussion. No rales, rhonchi or wheezes noted. No increased work of breathing, no retractions or nasal flaring. Abdomen/GI: Soft, non-tender, with normal bowel sounds. No distension or tympany. No guarding or rebound. No evidence of tenderness throughout. Back: No spinal tenderness. No costovertebral tenderness. Full range of motion. Skin: Warm, dry with normal turgor. Normal color with no rashes, no lesions, and no evidence of cellulitis. MS/ Extremity: Pulses equal, no cyanosis. Neurovascular intact. Full, normal range of motion. Psych: Awake, alert, with orientation to person, place and time. Behavior, mood, and affect are within normal limits. Vital Signs: 01:30 BP 141 / 105; Pulse 96; Resp 18; Temp 97.2; Pulse Ox 99% on R/A; Weight 134.72 kg; tw5 Height 5 ft. 1 in. (154.94 cm); Pain 5/10; 01:35 BP 141 / 98; Pulse 99; Resp 18; Pulse Ox 100% on R/A; tw5 01:30 Body Mass Index 56.12 (134.72 kg, 154.94 cm) tw5 MDM: 01:20 Patient medically screened. ms3 03:11 Data reviewed: vital signs, nurses notes, lab test result(s), and as a result, I will ms3 discharge patient. 03:11 ED course: Discussed diabetic diet and exercise with patient. Patient to follow-up with ms3 her primary care physician in 2 to 3 days. Patient understands agrees with plan. All questions were answered. Return precautions discussed include worsening symptoms, or any other concerns.. 04/24 01:02 Order name: CBC with Diff; Complete Time: 02:46 ms3 04/24 01:02 Order name: BMP ms3 04/24 01:21 Order name: Urine --Ancillary (enter results); Complete Time: 02:19 ds4 04/24 01:21 Order name: Urine Dipstick-Ancillary; Complete Time: 02:19 EDMS 04/24 01:24 Order name: Glucose, Ancillary Testing; Complete Time: 02:19 EDMS 04/24 01:02 Order name: Glucose Level; Complete Time: 01:12 ms3 04/24 01:06 Order name: Urine Dipstick-Ancillary (obtain specimen); Complete Time: 01:21 tw5 Administered Medications: 01:30 Drug: NS 0.9% 1000 ml Route: IV; Rate: 1000 ml; Site: right hand; tw5 03:19 Follow up: Response: No adverse reaction; IV Status: Completed infusion; IV Intake: tw5 1000ml Disposition Summary: 04/24/22 02:50 Discharge Ordered Location: Home ms3 Condition: Stable ms3 Diagnosis - Other specified diabetes mellitus with hyperglycemia ms3 Followup: ms3 - With: Private Physician - When: 2 - 3 days - Reason: Recheck today's complaints Discharge Instructions: - Discharge Summary Sheet ms3 - Hyperglycemia ms3 - Diabetes Mellitus and Exercise ms3 - Diabetes Mellitus and Nutrition, Adult ms3 - Hyperglycemia, [id number] ms3 Forms: - Medication Reconciliation Form ms3 - Thank You Letter ms3 - Antibiotic Education ms3 - Prescription Opioid Use ms3 Signatures: Dispatcher [employer] EDMS Polo Rodríguez DO DO ms3 Airam Garcia tw5 Corrections: (The following items were deleted from the chart) 01:34 01:33 PSHx: None; tw5 tw5
--- NOTE | 2022-04-24 02:51 | ER ---
Nurse's Notes [facility] Name: Marianne Arredondo Age: 32 yrs Sex: Female : 1990 Arrival Date: 04/24/2022 Time: 00:43 Bed 6 Private MD: Diagnosis: Other specified diabetes mellitus with hyperglycemia Presentation: 04/24 01:30 Chief complaint: Patient states: "My blood sugar has been so high, it got as high as tw5 595. I was getting nauseous, thirsty and I had slight headache. I checked it several times and it would lower a little bit but right before I came in here it was 507.". Coronavirus screen: Vaccine status: Patient reports receiving the 2nd dose of the covid vaccine. Immunetrics. Ebola Screen: Patient negative for fever greater than or equal to 101.5 degrees Fahrenheit, and additional compatible Ebola Virus Disease symptoms Patient denies exposure to infectious person. Patient denies travel to an Ebola-affected area in the 21 days before illness onset. Initial Sepsis Screen: Does the patient meet any 2 criteria? HR > 90 bpm. Does the patient have a suspected source of infection? Yes: Acute abdominal pain. Risk Assessment: Do you want to hurt yourself or someone else? Patient reports no desire to harm self or others. Onset of symptoms was April 24, 2022 at 00:00. 01:30 Method Of Arrival: Ambulatory tw5 01:30 Acuity: KEREN 3 tw5 Triage Assessment: 01:33 General: Appears in no apparent distress. obese, Behavior is calm, cooperative, tw5 appropriate for age. Pain: Complains of pain in abdomen Pain currently is 5 out of 10 on a pain scale. NEWS CAMERAMAN: 01:33 LMP 04/03/2022 tw5 Historical: - Allergies: :33 No Known Allergies; tw - Home Meds: :33 glipizide 10 mg Oral tab 1 tab once daily for type 2 diabetes mellitus [Active]; tw metformin 1,000 mg Oral tab 1 tab 2 times per day for type 2 diabetes mellitus [Active]; - PMHx: 01:33 Diabetes mellitus; tw5 - PSHx: 01:33 Tonsillectomy; tw5 - Immunization history:: Adult Immunizations up to date. - Social history:: Smoking status: Patient denies any tobacco usage or history of. Screenin:35 Abuse screen: Denies threats or abuse. Denies injuries from another. Nutritional tw5 screening: No deficits noted. Tuberculosis screening: No symptoms or risk factors identified. Fall Risk None identified. Assessment: :35 General: Appears in no apparent distress. Neuro: No deficits noted. Respiratory: No tw5 deficits noted. GI: Abdomen is non-distended, obese, Reports nausea. Vital Signs: 01:30 BP 141 / 105; Pulse 96; Resp 18; Temp 97.2; Pulse Ox 99% on R/A; Weight 134.72 kg; tw5 Height 5 ft. 1 in. (154.94 cm); Pain 5/10; 01:35 BP 141 / 98; Pulse 99; Resp 18; Pulse Ox 100% on R/A; tw5 01:30 Body Mass Index 56.12 (134.72 kg, 154.94 cm) tw5 ED Course: 00:43 Patient arrived in ED. bp1 00:49 Polo Rodríguez DO is Attending Physician. ms3 01:00 Airam Garcia is Primary Nurse. tw5 01:03 Patient has correct armband on for positive identification. Placed in gown. Bed in low tw5 position. Call light in reach. Adult w/ patient. Client placed on continuous cardiac and pulse oximetry monitoring. NIBP monitoring applied. Door closed. Noise minimized. Moved to private room. Warm blanket given. Verbal reassurance given. 01:30 BMP Sent. tw5 01:30 Urine --Ancillary (enter results) Sent. :30 CBC with Diff Sent. :33 Triage completed. :33 Arm band placed on. tw12 01:35 Awaiting lab results. 01:35 Initial lab(s) drawn, by me, by EMS personnel. Urine collected: clean catch specimen, tw5 clear. Inserted saline lock: 22 gauge in right hand, using aseptic technique. Blood collected. Missed attempt(s): 20 gauge in right antecubital area. Bleeding controlled, band aid applied, catheter tip intact. 03:19 No provider procedures requiring assistance completed. IV discontinued, intact, tw5 bleeding controlled, No redness/swelling at site. Pressure dressing applied. Administered Medications: :30 Drug: NS 0.9% 1000 ml Route: IV; Rate: 1000 ml; Site: right hand; tw 03:19 Follow up: Response: No adverse reaction; IV Status: Completed infusion; IV Intake: tw5 1000ml Medication: 01:35 VIS not applicable for this client. Intake: 03:19 IV: 1000ml; Total: 1000ml. Outcome: 02:50 Discharge ordered by . ms3 03:19 Discharged to home ambulatory. tw 03:19 Condition: good 03:19 Discharge instructions given to patient, Instructed on discharge instructions, follow up and referral plans. Demonstrated understanding of instructions, follow-up care. 03:20 Patient left the ED. Signatures: Polo Rodríguez, DO NOBLE ms3 Marianne Rossi Tiffany tw5 Corrections: (The following items were deleted from the chart) 01:34 01:33 PSHx: None; tw
[2022-04-25 21:17] VITALS: TEMP 97.2
[2022-04-25 21:27] VITALS: BP 141/98; O2SAT 100
== END 2022-04-24 03:20 | disposition home or self-care (01) ==
LOC: ER 00:38
DX: E13.65 Other specified diabetes mellitus with hyperglycemia (principal)
CPT/HCPCS: 96361; 85025; 80048; 36415; 81025; 82947; 81003; 96360; 99283; J7030